=== PATIENT | female | born 1975 | race Two or more races ===

== ENCOUNTER 2016-10-18 18:27 | Emergency (ER) | payer OTHER ==
[~2016-10-18] VITALS: Ht 157.5 cm; Wt 72.6 kg
[2016-10-19 00:54] LABS: Basophils # (auto) 0 uL; Basophils % (auto) 0.7 % (0.0-2.0); Eosinophils # (auto) 0.1 uL; Eosinophils % (auto) 2.2 % (0.0-7.0); Hematocrit 39.2 % (36.0-46.0); Hemoglobin 13.4 g/dL (12.2-16.2); Lymphocytes # (auto) 2.5 uL; Lymphocytes % (auto) 37.8 % (10.0-50.0); Mean Corpuscular Hgb Conc. 34.3 g/dL (32.0-36.0); Mean Corpuscular Volume 90.3 fL (80.0-100.0); Mean Platelet Volume 8.7 fL (7.4-10.4); Monocytes # (auto) 0.7 uL; Monocytes % (auto) 10.3 % (0.0-12.0); Neutrophils # (auto) 3.3 uL; Platelet Count (auto) 271 10^3/uL (140-450); Red Cell Distribution Width 13.6 % (11.6-16.0); White Blood Cell 6.6 10^3/uL (4.4-10.8)
[2016-10-19 01:09] LABS: INR 0.98 (0.9-1.15); Partial Thromboplastin Time 30.1 sec (22.64-33.71); Prothrombin Time 10.7 sec (9.37-12.3)
[2016-10-19 01:11] LABS: Calcium 8.4 mg/dL (8.5-10.1); Potassium 3.9 mmol/L (3.5-5.1)
[2016-10-19 01:15] LABS: Albumin 3.7 g/dL (3.4-5.0); BUN/Creatinine Ratio 10.4
[2016-10-19 01:17] LABS: Bilirubin, Total 0.8 mg/dL (0.2-1.0); Total Protein 7.5 g/dL (6.4-8.2)
[2016-10-19 02:30] VITALS: BP 114/82
== END 2016-10-19 03:53 | disposition home or self-care (01) ==
LOC: ER 18:40
DX: S86.912A Strain of unspecified muscle(s) and tendon(s) at lower leg level, left leg, initial encounter (principal); I10 Essential (primary) hypertension; E07.9 Disorder of thyroid, unspecified; W18.39XA Other fall on same level, initial encounter; Y93.89 Activity, other specified; Y92.89 Other specified places as the place of occurrence of the external cause; Y99.8 Other external cause status
CPT/HCPCS: 36415; 73590; 80053; 85025; 85610; 85730; 93971

== ENCOUNTER 2016-11-14 19:27 | Emergency (ER) | payer OTHER ==
[~2016-11-14] VITALS: Ht 157.5 cm; Wt 74.8 kg
[2016-11-14 20:42] LABS: Basophils # (auto) 0.1 uL; Basophils % (auto) 1.2 % (0.0-2.0); Eosinophils # (auto) 0.4 uL; Eosinophils % (auto) 4.7 % (0.0-7.0); Hematocrit 41.2 % (36.0-46.0); Hemoglobin 13.6 g/dL (12.2-16.2); Lymphocytes # (auto) 2.9 uL; Lymphocytes % (auto) 30.4 % (10.0-50.0); Mean Corpuscular Hemoglobin 30.4 pg (28.0-32.0); Mean Corpuscular Hgb Conc. 33.1 g/dL (32.0-36.0); Mean Corpuscular Volume 91.8 fL (80.0-100.0); Monocytes # (auto) 0.9 uL; Monocytes % (auto) 9.4 % (0.0-12.0); Neutrophils # (auto) 5.1 uL; Neutrophils % (auto) 54.3 % (37.0-80.0); Platelet Count (auto) 279 10^3/uL (140-450); Red Cell Distribution Width 14.1 % (11.8-14.3); White Blood Cell 9.5 10^3/uL (4.4-10.8)
[2016-11-14 20:58] LABS: Albumin 3.6 g/dL (3.4-5.0); BUN/Creatinine Ratio 9.6; Bilirubin, Total 0.5 mg/dL (0.2-1.0); Calcium 8.4 mg/dL (8.5-10.1); Potassium 3.4 mmol/L (3.5-5.1); Total Protein 7.4 g/dL (6.4-8.2)
[2016-11-14] MEDS ORDERED: cefTRIAXone 1GM/50ML D5W 50 ML IV ONE (23:45)
[2016-11-14] MEDS ORDERED: VANCOMYCIN 1GM/250ML D5W 250 ML IV ONE (23:45)
[2016-11-15] MEDS ORDERED: LORazepam 0.5 MG TAB PO ONE (01:45)
[2016-11-15] MEDS ORDERED: diphenhdrAMINE HCL 25 MG CAP PO ONE (01:45)
[2016-11-15] MEDS ORDERED: methylPREDNISolone SOD SUCC 125 MG/2 ML VL IV ONE (01:45)
[2016-11-15 03:06] VITALS: BP 129/92
== END 2016-11-15 03:38 | disposition short-term general hospital (02) ==
LOC: ER 19:31
DX: L02.416 Cutaneous abscess of left lower limb (principal); I10 Essential (primary) hypertension
CPT/HCPCS: 36415; 73700; 80053; 84702; 85025; 87040; 93971; 96365; 96368; 96375; 99285; J0696; J2930; J3370; J7030

== ENCOUNTER 2016-11-18 21:30 | Emergency (ER) | payer OTHER ==
[~2016-11-18] VITALS: Ht 160 cm; Wt 72.6 kg
[2016-11-18] MEDS ORDERED: diphenhdrAMINE HCL 50 MG/1 ML VL ONE (21:37)
[2016-11-18] MEDS ORDERED: methylPREDNISolone SOD SUCC 125 MG/2 ML VL ONE (21:37)
[2016-11-18] MEDS ORDERED: diphenhdrAMINE HCL 50 MG/1 ML VL IV ONE (21:45)
[2016-11-18] MEDS ORDERED: methylPREDNISolone SOD SUCC 125 MG/2 ML VL IV ONE (21:45)
[2016-11-18] MEDS ORDERED: PIPERACILLIN-TAZOB 3.375GM 100 ML IV ONE (22:30)
[2016-11-19 01:18] VITALS: BP 118/81
== END 2016-11-19 01:06 | disposition home or self-care (01) ==
LOC: ER 21:31
DX: M79.605 Pain in left leg (principal); L53.9 Erythematous condition, unspecified; I10 Essential (primary) hypertension; E07.89 Other specified disorders of thyroid; Z88.1 Allergy status to other antibiotic agents
CPT/HCPCS: 96365; 96366; 96375; 99285; J1200; J2543; J2930